=== PATIENT | female | born 1980 | race Caucasian/White ===

== ENCOUNTER 2018-04-05 12:36 | Emergency (ER) | payer OTHER ==
--- NOTE | 2018-04-05 12:38 | NUR ---
PT REFUSES TO BE SEEN BY PMD AND TRIAGED. MD AWARE.
== END 2018-04-05 12:50 | disposition left against medical advice (07) ==
LOC: ER 12:49
DX: Z53.21 Procedure and treatment not carried out due to patient leaving prior to being seen by health care provider (principal)
CPT/HCPCS: J7060